=== PATIENT | female | born 1985 | race American Indian/Alaskan Native ===

== ENCOUNTER 2017-02-04 12:22 | Emergency (ER) | payer BC ==
[2017-02-04 12:37] VITALS: BP 139/96
--- NOTE | 2017-02-04 12:42 | Emergency Department Report ---
ED ENT HPI - General Chief complaint: Upper Respiratory Infection Stated complaint: BODY PAIN Time Seen by Provider: 02/04/17 12:34 Source: patient Mode of arrival: Ambulatory Limitations: No Limitations - History of Present Illness Initial comments: PT c/o c/c/c x 4 days. PT states she is feeling worse today. PT states she has a dry cough and it hurts to cough. + ear ache, + sore throat, + headache PT has SHARA BARAAJS complaint: ear pain, other (congestion ) Onset/Timin -: Gradual, days(s) Severity: severe Severity scale (0 -10): 8 Quality: aching, other (pressure) Consistency: constant Improves with: none, other (no improvement with otc cough meds ) Worsens with: movement, other (coughing ) Associated Symptoms: cough, sore throat, rhinorrhea. denies: fever, toothache - Related Data Previous Rx's Medication Instructions Recorded Last Taken Type Amoxicillin 500 mg PO BID #20 capsule 02/04/17 Unknown Rx Benzonatate [Tessalon Perles] 100 mg PO Q8HR PRN #12 capsule 02/04/17 Unknown Rx Ibuprofen [Motrin] 600 mg PO Q8H PRN #15 tablet 02/04/17 Unknown Rx Allergies Allergy/AdvReac Type Severity Reaction Status Date / Time No Known Allergies Allergy Verified 02/04/17 12:38 ED Dental HPI - General Chief complaint: Upper Respiratory Infection Stated complaint: BODY PAIN Time Seen by Provider: 02/04/17 12:34 Source: patient Mode of arrival: Ambulatory Limitations: No Limitations - Related Data Previous Rx's Medication Instructions Recorded Last Taken Type Amoxicillin 500 mg PO BID #20 capsule 02/04/17 Unknown Rx Benzonatate [Tessalon Perles] 100 mg PO Q8HR PRN #12 capsule 02/04/17 Unknown Rx Ibuprofen [Motrin] 600 mg PO Q8H PRN #15 tablet 02/04/17 Unknown Rx Allergies Allergy/AdvReac Type Severity Reaction Status Date / Time No Known Allergies Allergy Verified 02/04/17 12:38 ED Review of Systems ROS: Stated complaint: BODY PAIN Other details as noted in HPI Comment: All other systems reviewed and negative Constitutional: malaise. denies: fever ENT: ear pain, throat pain, congestion Respiratory: cough (dry ), other (sneezing ) Gastrointestinal: denies: abdominal pain, nausea, vomiting Genitourinary: denies: abnormal menses Neurological: headache (facial pain ) ED Past Medical Hx - Past Medical History Previous Medical History?: No - Surgical History Past Surgical History?: No - Medications Home Medications: Home Medications Medication Instructions Recorded Confirmed Last Taken Type Amoxicillin 500 mg PO BID #20 capsule 02/04/17 Unknown Rx Benzonatate [Tessalon Perles] 100 mg PO Q8HR PRN #12 capsule 02/04/17 Unknown Rx Ibuprofen [Motrin] 600 mg PO Q8H PRN #15 tablet 02/04/17 Unknown Rx ED Physical Exam - General Limitations: No Limitations General appearance: alert, in no apparent distress - Head Head exam: Present: atraumatic, normocephalic, normal inspection, other ( frontal and maxillary sinus tenderness mitchel ) - Eye Eye exam: Present: normal appearance, PERRL, EOMI. Absent: conjunctival injection - ENT ENT exam: Present: mucous membranes moist, normal external ear exam, other (mitchel nasal drainage noted, no bleeding noted ) - Expanded ENT Exam Expanded TM/Canal exam: Cerumen Impaction: Right TM Mouth exam: Absent: drooling, trismus Throat exam: Positive: tonsillar erythema (possible, however, pt just ate a cough drop and her entire mouth is stained red ). Negative: tonsillomegaly, tonsillar exudate - Neck Neck exam: Present: normal inspection. Absent: tenderness - Respiratory Respiratory exam: Present: normal lung sounds bilaterally, respiratory distress. Absent: wheezes, rhonchi, stridor, chest wall tenderness - Cardiovascular Cardiovascular Exam: Present: regular rate, normal rhythm, normal heart sounds - GI/Abdominal GI/Abdominal exam: Present: soft. Absent: tenderness - Extremities Exam Extremities exam: Present: normal inspection, full ROM - Back Exam Back exam: Present: normal inspection, full ROM. Absent: tenderness, CVA tenderness (R), CVA tenderness (L) - Neurological Exam Neurological exam: Present: alert, oriented X3 - Psychiatric Psychiatric exam: Present: normal affect, normal mood - Skin Skin exam: Present: warm, dry, intact, normal color ED Course Vital Signs 02/04/17 12:34 Temperature 98.4 F Pulse Rate 97 H Respiratory 18 Rate Blood Pressure 139/96 O2 Sat by Pulse 99 Oximetry - Reevaluation(s) Reevaluation #1: 02/04/17 13:53 PT aware of CXR result, dx and plan of care. PT has no questions at this time. - Pulse Oximetry Interpretation Digit-Finger Initial Pulse Oximetry Readin Actions Taken: none ED Medical Decision Making - Radiology Data Radiology results: report reviewed CXR - NAP - Differential Diagnosis uri, sinusitis, bronchitis, pna Critical Care Time: No Critical care attestation.: If time is entered above; I have spent that time in minutes in the direct care of this critically ill patient, excluding procedure time. ED Disposition Clinical Impression: Cough Sinusitis Qualifiers: Sinusitis location: unspecified location Chronicity: acute Recurrence: non- recurrent Qualified Code(s): J01.90 - Acute sinusitis, unspecified Disposition: TO HOME OR SELFCARE Is pt being admited?: No Does the pt Need Aspirin: No Condition: Stable Instructions: Sinusitis (ED), Upper Respiratory Infection (ED) Additional Instructions: Use otc Normal Saline Nasal spray Follow up with PCP in 3-5 days Recheck your bp on follow up Return to the ED if worsening or concerns Prescriptions: Amoxicillin 500 mg PO BID #20 capsule Benzonatate [Tessalon Perles] 100 mg PO Q8HR PRN #12 capsule PRN Reason: Cough Ibuprofen [Motrin] 600 mg PO Q8H PRN #15 tablet PRN Reason: Pain Referrals: CORTEZ CARVALHO MD [Primary Care Provider] - 3-5 Days Forms: Work/School Release Form(ED) Time of Disposition: 13:49
--- NOTE | 2017-02-04 13:39 | XRay Report ---
ROUTINE CHEST, TWO VIEWS: History: Cough and congestion. PA and lateral views demonstrate the heart and mediastinal contour to be of normal size and shape. The lungs are clear and fully expanded and the soft tissues and bony structures are normal. IMPRESSION: Normal study.
== END 2017-02-04 13:58 | disposition home or self-care (01) ==
LOC: ED 12:22
DX: J32.1 Chronic frontal sinusitis (principal); J32.0 Chronic maxillary sinusitis
CPT/HCPCS: 71020; 99283